=== PATIENT | male | born 1965 | race Caucasian/White ===

== ENCOUNTER 2020-04-27 13:44 | Emergency (ER) | payer BC, SELFPAY ==
[2020-04-27 13:45] VITALS: BP 129/83; PULSE 78; RESP 17; TEMP 37.2; O2SAT 99; BMI 22.3
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
--- NOTE | 2020-04-27 15:48 | CT_ITS ---
STUDY: CT LUMBAR SPINE WITHOUT CONTRAST REASON FOR EXAM: Male, 55 years old. 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 High resolution transaxial imaging was performed. Images were obtained from thoracic to sacrum. Sagittal and coronal images were reconstructed. Individualized dose optimization techniques were used for this CT. COMPARISON: None FINDINGS: Normal lumbar lordosis. There is mild scoliosis. Normal vertebrae of the lumbar spine. Moderate spondylosis. L1-2: Normal endplates. Normal disc height and morphology. Normal bilateral facet joints. Normal central canal and bilateral lateral recesses. Normal bilateral intervertebral neural foramina. L2-3: Moderate central and lateral spinal stenosis due to a circumferential disc marginal osteophyte and shortened pedicles. Central canal measures 8 mm in the midline. L3-4: Moderate central and lateral spinal stenosis due to a circumferential disc marginal osteophyte and shortened pedicles. Central canal measures 8 mm in the midline. L4-5: Moderate central and lateral spinal stenosis due to a circumferential disc marginal osteophyte and shortened pedicles. Central canal measures 8 mm in the midline. L5-S1: Moderate central and lateral spinal stenosis due to a circumferential disc marginal osteophyte and shortened pedicles. Central canal measures 8 mm in the midline. Normal visualized paraspinous soft tissue structures. Punctate nonobstructing nephroliths on the right. IMPRESSION: Mild scoliosis. 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 No fracture. Nonobstructing nephrolithiasis on the right. Electronically Signed: Clayton Heard MD at 17:31 EST , Service support , CT/Spine Lumbar without Contrast
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
[2020-04-27 16:13] LABS: Absolute Lymphocyte Count 1.35 X10^3/uL (0.83-4.51); Absolute Neutrophil Count 5.9 X10^3/uL (2.0-7.7); Basophil# 0.04 X10^3/uL; Basophil% 0.5 % (0-1); Eosinophil# 0.37 X10^3/uL; Eosinophils% 4.5 % (0-5); Hematocrit 46.1 % (40-54); Hemoglobin 15.8 g/dL (13.0-16.5); Lymphocyte # 1.35 X10^3/ul (4.0); Lymphocyte % 16.5 % (19-41); Mean Corp Hgb Conc 34.3 g/dL (32-36); Mean Corpuscular Hgb 30.6 pg (27.0-32.0); Mean Corpuscular Volume 89.2 fL (80-94); Mean Platelet Vol. 10.2 fl (6.2-12.0); Monocyte# 0.51 X10^3/uL; Monocyte% 6.2 % (0-10); NRBC Flagged by Analyzer 0 % (0-5); Neutrophil # 5.88 X10^3/uL (2.7-7.7); Neutrophil % 71.9 % (47-70); Platelet Count 163 K/mm3 (150-450); RBC Distribution Width SD 39.2 fl (35.1-43.9); Red Blood Count 5.17 M/mm3 (4.6-6.2); White Blood Count 8.2 K/mm3 (4.4-11.0)
[2020-04-27] MEDS: Morphine 4 MG/ML Syringe IV (16:22)
[2020-04-27] MEDS: 0.9% Normal Saline 1,000 ML 999 ML IV (16:22)
[2020-04-27] MEDS: Ondansetron 4 MG/2 ML Vial IV (16:22)
--- NOTE | 2020-04-27 16:22 | EKG12_ITS ---
Test Reason : TRAUMA Blood Pressure : / mmHG Vent. Rate : 084 BPM Atrial Rate : 084 BPM P-R Int : 170 ms QRS Dur : 090 ms QT Int : 378 ms P-R-T Axes : 059 034 006 degrees QTc Int : 446 ms Normal sinus rhythm Nonspecific T wave abnormality Abnormal ECG Confirmed by COLLINS CUMMINGS, KATEY ([id number]), harvest worker RUBEN FUNK ([id number]) on 05/03/2020 11:01:06 AM Referred By: GALO Confirmed By:KATEY GUADALUPE MD
[2020-04-27 16:29] VITALS: BP 137/79; PULSE 92; RESP 13; O2SAT 98
[2020-04-27 16:36] LABS: Anion Gap 4 (5-15); BUN 8 mg/dL (7-18); BUN/Creat Ratio 10.1 RATIO (10-20); Calcium,Total 9.4 mg/dL (8.5-10.1); Chloride 107 mmol/L (98-107); Creatinine, Serum 0.79 mg/dL (0.70-1.30); EST Glomerular Filtration Rate 108 mL/min (>60); Est Glom Filt Rate - Afr Amer 131 mL/min (>60); Estimated Creatinine Clearance 109.73 ml/min; Glucose 158 mg/dL (74-106); Potassium 3.1 mmol/L (3.5-5.1); Sodium Level 140 mmol/L (136-145)
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
[2020-04-27 17:44] VITALS: O2SAT 98
[2020-04-27 18:11] VITALS: BP 135/75; PULSE 74; RESP 15; O2SAT 98
== END 2020-04-27 18:12 | disposition home or self-care (01) ==
PROVIDERS: Emergency Provider Emergency Medicine; PCP Physician Assistant Medical
DX: S40.012A Contusion of left shoulder, initial encounter (principal); S70.11XA Contusion of right thigh, initial encounter; S09.90XA Unspecified injury of head, initial encounter; E11.9 Type 2 diabetes mellitus without complications; Z79.84 Long term (current) use of oral hypoglycemic drugs; V09.29XA Pedestrian injured in traffic accident involving other motor vehicles, initial encounter; Y93.89 Activity, other specified; Y92.410 Unspecified street and highway as the place of occurrence of the external cause; Y99.8 Other external cause status
CPT/HCPCS: 70450; 71045; 72125; 72131; 73030; 73552; 80048; 85025; 93005; 96361; 96374; 96375; 99285; J7030; A4216; J2405